=== PATIENT | male | born 1960 | race Caucasian/White ===

== ENCOUNTER 2018-04-23 21:46 | Emergency (ER) | payer OTHER ==
[~2018-04-23] VITALS: Ht 182.9 cm; Wt 122.9 kg
[2018-04-23 21:49] VITALS: Ht 182.9 cm; Wt 122.9 kg
[2018-04-23 22:48] LABS: BASOPHIL % 0.3 % (0-2); PLATELET COUNT 236 x10^3mcL (130-400); RED CELL DISTRIBUTION WIDTH 13.2 % (11.5-14.5)
[2018-04-23 23:06] LABS: ALBUMIN 3.5 g/dL (3.4-5.0); ALKALINE PHOSPHATASE 95 U/L (46-116); ALT/SGPT 50 U/L (16-63); AST/SGOT 30 U/L (15-37); BILIRUBIN TOTAL 0.2 mg/dL (0.20-1.00); CALCIUM 8.7 mg/dL (8.5-10.1); CARBON DIOXIDE 27.8 mmol/L (21-32); CHLORIDE SERUM 104 mmol/L (98-107); CHOLESTEROL 159 mg/dL (<200); CREATININE SERUM 1.3 mg/dL (0.7-1.3); GFR1 > 60 mL/min; GLUCOSE SERUM 121 mg/dL (74-106); HDL CHOLESTEROL 45 mg/dL (40-60); PHOSPHOROUS 2.3 mg/dL (2.5-4.9); POTASSIUM SERUM 4.2 mmol/L (3.5-5.1); SODIUM SERUM 140 mmol/L (136-145); TOTAL PROTEIN, SERUM 7.9 g/dL (6.4-8.2); URIC ACID 7.5 mg/dL (3.5-7.2)
[2018-04-23 23:58] VITALS: BP 112/83
== END 2018-04-23 23:58 | disposition home or self-care (01) ==
LOC: ED 21:46
PROVIDERS: Emergency Medicine
DX: R07.89 Other chest pain (principal); R42 Dizziness and giddiness; I10 Essential (primary) hypertension
CPT/HCPCS: J1885; Q0092

== ENCOUNTER 2020-04-14 20:37 | Inpatient (IN) | payer OTHER, SELFPAY ==
[~2020-04-14] VITALS: Ht 182.9 cm; Wt 109.8 kg
[2020-04-14 20:44] VITALS: Ht 182.9 cm; Wt 109.8 kg
[2020-04-14 21:22] LABS: BASOPHIL % 0.3 % (0.2-1.5); PLATELET COUNT 256 x10^3mcL (152-348); RED CELL DISTRIBUTION WIDTH 13.5 % (12.1-16.2)
[2020-04-14 21:24] LABS: CALCIUM 8.4 mg/dL (8.5-10.1); CARBON DIOXIDE 22.4 mmol/L (21-32); CREATININE SERUM 1.4 mg/dL (0.7-1.3); POTASSIUM SERUM 4.2 mmol/L (3.5-5.1)
[2020-04-14 21:42] LABS: ALBUMIN 2.7 g/dL (3.4-5.0); BILIRUBIN TOTAL 0.55 mg/dL (0.20-1.00); TOTAL PROTEIN, SERUM 7.6 g/dL (6.4-8.2)
[2020-04-14 21:50] LABS: C REACTIVE PROTEIN 25.2 mg/dL (<=0.9)
[2020-04-15 00:15] LABS: UA SPECIFIC GRAVITY >=1.030 (1.005-1.035); microscopic required? YES; urine erythrocyte 3+ (NEGATIVE)
[2020-04-15 00:22] VITALS: BP 136/81
[2020-04-15 00:27] LABS: AMPHETAMINE QUAL UR NONE DETECTED (See below)
[2020-04-15 08:16] VITALS: BP 122/79
[2020-04-15 09:50] LABS: T3 TOTAL 0.95 ng/mL
[2020-04-15 10:19] LABS: MAGNESIUM 2.4 mg/dL (1.8-2.4); PHOSPHOROUS 2.7 mg/dL (2.5-4.9)
[2020-04-15 10:21] LABS: CHOLESTEROL/HDL RATIO 2.9
[2020-04-15 10:31] LABS: FREE T4 1.4 ng/dL (0.76-1.46); FREE THYROXINE INDEX 3.3 ug/dL (1.4-4.5); T4(THYROXINE) 9.8 ug/dL (4.7-13.3)
[2020-04-15] MEDS ORDERED: ZESTRIL40 MG PO (11:44)
[2020-04-15] MEDS ORDERED: FERROUS GLUCON324 MG (11:45)
[2020-04-15] MEDS ORDERED: NASAL MIST126 ML (11:46)
[2020-04-15 11:55] VITALS: BP 128/77
[2020-04-15 12:33] LABS: ALKALINE PHOSPHATASE 100 U/L (46-116); ALT/SGPT 134 U/L (16-63); AST/SGOT 176 U/L (15-37); BILIRUBIN TOTAL 0.54 mg/dL (0.20-1.00); CALCIUM 8.7 mg/dL (8.5-10.1); CARBON DIOXIDE 24.3 mmol/L (21-32); CHLORIDE SERUM 97 mmol/L (98-107); CREATININE SERUM 1.2 mg/dL (0.7-1.3); GFR1 > 60 mL/min; GLUCOSE SERUM 87 mg/dL (74-106); POTASSIUM SERUM 4.2 mmol/L (3.5-5.1); SODIUM SERUM 135 mmol/L (136-145); TOTAL PROTEIN, SERUM 7.7 g/dL (6.4-8.2)
[2020-04-15 12:40] LABS: BILIRUBIN DIRECT 0.26 mg/dL (0.0-0.2); BILIRUBIN TOTAL 0.51 mg/dL (0.20-1.00); TOTAL PROTEIN, SERUM 7.6 g/dL (6.4-8.2)
[2020-04-15 12:41] LABS: ALBUMIN 2.7 g/dL (3.4-5.0)
[2020-04-15 12:42] LABS: ALBUMIN 2.7 g/dL (3.4-5.0)
[2020-04-15 15:43] VITALS: BP 111/70
[2020-04-15 19:08] LABS: BASOPHIL % 0.3 % (0.2-1.5); PLATELET COUNT 299 x10^3mcL (152-348); RED CELL DISTRIBUTION WIDTH 13.5 % (12.1-16.2)
[2020-04-15 20:39] VITALS: BP 118/81
[2020-04-16] VITALS (8 sets, daily range): BP systolic 113–134; BP diastolic 72–97
[2020-04-16 08:06] LABS: PLATELET COUNT 336 x10^3mcL (152-348); RED CELL DISTRIBUTION WIDTH 13.4 % (12.1-16.2)
[2020-04-16 08:17] LABS: CALCIUM 8.4 mg/dL (8.5-10.1); CARBON DIOXIDE 26.5 mmol/L (21-32); CHLORIDE SERUM 98 mmol/L (98-107); CREATININE SERUM 1.1 mg/dL (0.7-1.3); GFR1 > 60 mL/min; GLUCOSE SERUM 101 mg/dL (74-106); MAGNESIUM 2.7 mg/dL (1.8-2.4); PHOSPHOROUS 4.4 mg/dL (2.5-4.9); POTASSIUM SERUM 4.4 mmol/L (3.5-5.1); SODIUM SERUM 135 mmol/L (136-145)
[2020-04-16 08:19] LABS: BILIRUBIN DIRECT 0.27 mg/dL (0.0-0.2); BILIRUBIN TOTAL 0.51 mg/dL (0.20-1.00)
[2020-04-16 08:20] LABS: ALBUMIN 2.6 g/dL (3.4-5.0)
[2020-04-16 11:24] LABS: MONOCYTE 18 % (0-7); SEGMENTED NEUTROPHILS 65 % (37-75); rbc morphology (normal/abnorm) NORMAL (NORMAL)
[2020-04-17 06:00] VITALS: BP 122/72
[2020-04-17 08:51] VITALS: BP 124/73
[2020-04-17 09:29] LABS: BASOPHIL % 0.3 % (0.2-1.5); RED CELL DISTRIBUTION WIDTH 13.7 % (12.1-16.2)
[2020-04-17 10:07] LABS: PLATELET COUNT 423 x10^3mcL (152-348)
[2020-04-17 12:09] VITALS: BP 138/78
[2020-04-17 13:56] LABS: BILIRUBIN DIRECT 0.21 mg/dL (0.0-0.2); BILIRUBIN TOTAL 0.4 mg/dL (0.20-1.00); TOTAL PROTEIN, SERUM 7.8 g/dL (6.4-8.2)
[2020-04-17 14:00] LABS: ALBUMIN 2.9 g/dL (3.4-5.0)
[2020-04-17 15:52] LABS: ALKALINE PHOSPHATASE 118 U/L (46-116); ALT/SGPT 142 U/L (16-63); AST/SGOT 136 U/L (15-37); BILIRUBIN TOTAL 0.4 mg/dL (0.20-1.00); CALCIUM 9.3 mg/dL (8.5-10.1); CHLORIDE SERUM 105 mmol/L (98-107); CREATININE SERUM 1.2 mg/dL (0.7-1.3); GFR1 > 60 mL/min; GLUCOSE SERUM 83 mg/dL (74-106); POTASSIUM SERUM 4.6 mmol/L (3.5-5.1); SODIUM SERUM 142 mmol/L (136-145); TOTAL PROTEIN, SERUM 7.8 g/dL (6.4-8.2)
[2020-04-17 16:05] LABS: ALBUMIN 2.9 g/dL (3.4-5.0)
[2020-04-17 16:51] VITALS: BP 100/69
[2020-04-17 20:38] VITALS: BP 126/80
[2020-04-18 05:00] VITALS: BP 130/85
[2020-04-18 07:40] LABS: BILIRUBIN DIRECT 0.27 mg/dL (0.0-0.2); BILIRUBIN TOTAL 0.64 mg/dL (0.20-1.00); TOTAL PROTEIN, SERUM 7.8 g/dL (6.4-8.2)
[2020-04-18 07:43] LABS: ALBUMIN 2.7 g/dL (3.4-5.0)
[2020-04-18 10:15] VITALS: BP 135/79
[2020-04-18 11:59] VITALS: BP 115/63
[2020-04-18 16:52] VITALS: BP 128/72
[2020-04-18 20:55] VITALS: BP 128/82
[2020-04-19 05:31] VITALS: BP 117/80
[2020-04-19 07:42] LABS: BASOPHIL % 0.1 % (0.2-1.5); RED CELL DISTRIBUTION WIDTH 13.4 % (12.1-16.2)
[2020-04-19 08:31] LABS: PLATELET COUNT 497 x10^3mcL (152-348)
[2020-04-19 08:48] LABS: CALCIUM 8.4 mg/dL (8.5-10.1); CHLORIDE SERUM 102 mmol/L (98-107); CREATININE SERUM 1.2 mg/dL (0.7-1.3); GFR1 > 60 mL/min; GLUCOSE SERUM 87 mg/dL (74-106); POTASSIUM SERUM 4.2 mmol/L (3.5-5.1); SODIUM SERUM 140 mmol/L (136-145)
[2020-04-19 08:49] LABS: C REACTIVE PROTEIN 16.1 mg/dL (<=0.9)
[2020-04-19 08:54] VITALS: BP 107/77
[2020-04-19 08:58] LABS: BILIRUBIN DIRECT 0.3 mg/dL (0.0-0.2); BILIRUBIN TOTAL 0.66 mg/dL (0.20-1.00); TOTAL PROTEIN, SERUM 7.8 g/dL (6.4-8.2)
[2020-04-19 09:08] LABS: ALBUMIN 2.6 g/dL (3.4-5.0)
[2020-04-19 12:20] VITALS: BP 107/76
[2020-04-19 16:50] VITALS: BP 103/68
[2020-04-19 22:03] VITALS: BP 113/74
[2020-04-20 06:08] VITALS: BP 138/80
[2020-04-20 07:15] LABS: RED CELL DISTRIBUTION WIDTH 13.6 % (12.1-16.2)
[2020-04-20 07:51] LABS: CALCIUM 9.1 mg/dL (8.5-10.1); CARBON DIOXIDE 25.6 mmol/L (21-32); CHLORIDE SERUM 103 mmol/L (98-107); CREATININE SERUM 1.1 mg/dL (0.7-1.3); GFR1 > 60 mL/min; GLUCOSE SERUM 90 mg/dL (74-106); POTASSIUM SERUM 4.2 mmol/L (3.5-5.1); SODIUM SERUM 139 mmol/L (136-145)
[2020-04-20 08:56] LABS: C REACTIVE PROTEIN 18.1 mg/dL (<=0.9)
[2020-04-20 09:44] VITALS: BP 121/74
[2020-04-20 12:10] VITALS: BP 117/80
[2020-04-20 13:10] LABS: MONOCYTE 5 % (0-7); SEGMENTED NEUTROPHILS 87 % (37-75)
[2020-04-20 13:11] LABS: rbc morphology (normal/abnorm) NORMAL (NORMAL)
[2020-04-20 13:12] LABS: PLATELET COUNT 571 x10^3mcL (152-348)
[2020-04-20 16:18] VITALS: BP 118/76
[2020-04-20 21:13] VITALS: BP 116/82
[2020-04-21 05:29] VITALS: BP 113/77
[2020-04-21 08:41] VITALS: BP 127/80
[2020-04-21 11:57] VITALS: BP 109/70
[2020-04-21 17:21] VITALS: BP 110/77
[2020-04-21 21:01] VITALS: BP 110/82
[2020-04-22 05:32] VITALS: BP 122/84
[2020-04-22 08:40] VITALS: BP 130/79
[2020-04-22 12:56] VITALS: BP 122/80
[2020-04-22 17:08] VITALS: BP 117/80
[2020-04-22 20:53] VITALS: BP 119/77
[2020-04-23] VITALS: BP 137/74
[2020-04-23 05:22] VITALS: BP 109/72
[2020-04-23 09:03] VITALS: BP 115/79
[2020-04-23 12:30] VITALS: BP 107/73
[2020-04-23 16:21] VITALS: BP 106/70
[2020-04-23 19:20] VITALS: BP 117/66
[2020-04-24] VITALS (7 sets, daily range): BP systolic 97–126; BP diastolic 56–82
[2020-04-24 07:33] LABS: BASOPHIL % 0.2 % (0.2-1.5); RED CELL DISTRIBUTION WIDTH 13.3 % (12.1-16.2)
[2020-04-24 07:46] LABS: CARBON DIOXIDE 28.8 mmol/L (21-32); CHLORIDE SERUM 99 mmol/L (98-107); CREATININE SERUM 1.1 mg/dL (0.7-1.3); GFR1 > 60 mL/min; GLUCOSE SERUM 85 mg/dL (74-106); POTASSIUM SERUM 4.2 mmol/L (3.5-5.1); SODIUM SERUM 136 mmol/L (136-145)
[2020-04-24 09:06] LABS: PLATELET COUNT 517 x10^3mcL (152-348)
[2020-04-25 06:00] VITALS: BP 110/74
[2020-04-25 07:45] VITALS: BP 99/63
[2020-04-25 09:21] LABS: BASOPHIL % 0.2 % (0.2-1.5); RED CELL DISTRIBUTION WIDTH 13.2 % (12.1-16.2)
[2020-04-25 09:37] LABS: CALCIUM 8.8 mg/dL (8.5-10.1); CARBON DIOXIDE 27.7 mmol/L (21-32); CHLORIDE SERUM 101 mmol/L (98-107); CREATININE SERUM 0.9 mg/dL (0.7-1.3); GFR1 > 60 mL/min; GLUCOSE SERUM 114 mg/dL (74-106); MAGNESIUM 2.1 mg/dL (1.8-2.4); POTASSIUM SERUM 3.9 mmol/L (3.5-5.1); SODIUM SERUM 137 mmol/L (136-145)
[2020-04-25 11:19] LABS: PLATELET COUNT 437 x10^3mcL (152-348)
[2020-04-25 13:19] VITALS: BP 107/69
[2020-04-25 17:11] VITALS: BP 102/78
[2020-04-25 20:15] VITALS: BP 104/63
[2020-04-26 04:51] VITALS: BP 95/58
[2020-04-26 07:29] LABS: BASOPHIL % 0.2 % (0.2-1.5); PLATELET COUNT 367 x10^3mcL (152-348); RED CELL DISTRIBUTION WIDTH 13.2 % (12.1-16.2)
[2020-04-26 08:08] LABS: CALCIUM 8.8 mg/dL (8.5-10.1); CARBON DIOXIDE 29.8 mmol/L (21-32); CHLORIDE SERUM 101 mmol/L (98-107); CREATININE SERUM 1.2 mg/dL (0.7-1.3); GFR1 > 60 mL/min; GLUCOSE SERUM 89 mg/dL (74-106); MAGNESIUM 2.1 mg/dL (1.8-2.4); SODIUM SERUM 137 mmol/L (136-145)
[2020-04-26 09:01] VITALS: BP 104/59
[2020-04-26 16:22] VITALS: BP 100/67
[2020-04-26 23:02] VITALS: BP 103/69
[2020-04-27 06:51] VITALS: BP 106/74
[2020-04-27 08:39] VITALS: BP 103/73
[2020-04-27 11:56] VITALS: BP 116/68
[2020-04-27 12:00] VITALS: BP 123/71
[2020-04-27 16:33] VITALS: BP 107/71
[2020-04-27 20:08] LABS: BASOPHIL % 0.1 % (0.2-1.5); PLATELET COUNT 319 x10^3mcL (152-348); RED CELL DISTRIBUTION WIDTH 12.9 % (12.1-16.2)
[2020-04-27 22:20] VITALS: BP 109/69
[2020-04-27 23:05] LABS: CALCIUM 9.2 mg/dL (8.5-10.1); CARBON DIOXIDE 28.5 mmol/L (21-32); CHLORIDE SERUM 98 mmol/L (98-107); CREATININE SERUM 0.9 mg/dL (0.7-1.3); GFR1 > 60 mL/min; GLUCOSE SERUM 105 mg/dL (74-106); POTASSIUM SERUM 4.6 mmol/L (3.5-5.1); SODIUM SERUM 135 mmol/L (136-145)
[2020-04-28 06:45] VITALS: BP 106/70
[2020-04-28 07:56] LABS: CALCIUM 9.5 mg/dL (8.5-10.1); CARBON DIOXIDE 31.3 mmol/L (21-32); CHLORIDE SERUM 98 mmol/L (98-107); CREATININE SERUM 1.1 mg/dL (0.7-1.3); GFR1 > 60 mL/min; GLUCOSE SERUM 81 mg/dL (74-106); POTASSIUM SERUM 4.2 mmol/L (3.5-5.1); SODIUM SERUM 137 mmol/L (136-145)
[2020-04-28 08:18] VITALS: BP 120/69
[2020-04-28 11:09] VITALS: BP 100/68
[2020-04-28 16:34] LABS: BASOPHIL % 0.6 % (0.2-1.5); PLATELET COUNT 287 x10^3mcL (152-348); RED CELL DISTRIBUTION WIDTH 13.3 % (12.1-16.2)
[2020-04-28 16:47] VITALS: BP 96/70
[2020-04-28 21:19] VITALS: BP 109/70
[2020-04-29 05:18] VITALS: BP 110/74
[2020-04-29 08:25] LABS: BASOPHIL % 0.8 % (0.2-1.5); PLATELET COUNT 247 x10^3mcL (152-348); RED CELL DISTRIBUTION WIDTH 13.1 % (12.1-16.2)
[2020-04-29 08:40] VITALS: BP 108/72
[2020-04-29 09:08] LABS: CALCIUM 9.5 mg/dL (8.5-10.1); CARBON DIOXIDE 27.5 mmol/L (21-32); CHLORIDE SERUM 100 mmol/L (98-107); CREATININE SERUM 0.9 mg/dL (0.7-1.3); GFR1 > 60 mL/min; GLUCOSE SERUM 76 mg/dL (74-106); POTASSIUM SERUM 3.7 mmol/L (3.5-5.1); SODIUM SERUM 138 mmol/L (136-145)
[2020-04-29 12:01] VITALS: BP 99/63
[2020-04-29 17:35] VITALS: BP 114/73
[2020-04-29 22:53] VITALS: BP 104/63
[2020-04-30 06:13] VITALS: BP 104/68
[2020-04-30 07:21] LABS: BASOPHIL % 0.2 % (0.2-1.5); PLATELET COUNT 278 x10^3mcL (152-348)
[2020-04-30 07:45] LABS: CALCIUM 9.5 mg/dL (8.5-10.1); CARBON DIOXIDE 30.6 mmol/L (21-32); CHLORIDE SERUM 100 mmol/L (98-107); GFR1 > 60 mL/min; GLUCOSE SERUM 78 mg/dL (74-106); POTASSIUM SERUM 4.2 mmol/L (3.5-5.1); SODIUM SERUM 138 mmol/L (136-145)
[2020-04-30 08:44] VITALS: BP 111/77; BP 70/41
[2020-04-30 12:05] VITALS: BP 107/69
[2020-04-30 16:48] VITALS: BP 109/76
[2020-04-30 22:06] VITALS: BP 19/82
[2020-05-01 06:05] VITALS: BP 99/63
[2020-05-01 07:36] LABS: CALCIUM 9.2 mg/dL (8.5-10.1); CARBON DIOXIDE 28.9 mmol/L (21-32); CHLORIDE SERUM 100 mmol/L (98-107); CREATININE SERUM 0.9 mg/dL (0.7-1.3); GFR1 > 60 mL/min; GLUCOSE SERUM 82 mg/dL (74-106); POTASSIUM SERUM 3.5 mmol/L (3.5-5.1); SODIUM SERUM 137 mmol/L (136-145)
[2020-05-01 07:40] LABS: BASOPHIL % 0.3 % (0.2-1.5); PLATELET COUNT 222 x10^3mcL (152-348); RED CELL DISTRIBUTION WIDTH 13.4 % (12.1-16.2)
[2020-05-01 08:36] VITALS: BP 99/65
[2020-05-01 10:55] VITALS: BP 97/64
[2020-05-01 16:59] VITALS: BP 107/76
[2020-05-01 21:03] VITALS: BP 103/67
[2020-05-02 05:25] VITALS: BP 95/70
[2020-05-02 06:59] LABS: BASOPHIL % 0.9 % (0.2-1.5); PLATELET COUNT 239 x10^3mcL (152-348); RED CELL DISTRIBUTION WIDTH 12.9 % (12.1-16.2)
[2020-05-02 07:42] LABS: CALCIUM 8.9 mg/dL (8.5-10.1); CARBON DIOXIDE 30.4 mmol/L (21-32); CHLORIDE SERUM 99 mmol/L (98-107); CREATININE SERUM 0.9 mg/dL (0.7-1.3); GFR1 > 60 mL/min; GLUCOSE SERUM 86 mg/dL (74-106); POTASSIUM SERUM 3.7 mmol/L (3.5-5.1); SODIUM SERUM 136 mmol/L (136-145)
[2020-05-02 09:29] VITALS: BP 112/74
[2020-05-02 13:50] VITALS: BP 95/66
[2020-05-02 17:06] VITALS: BP 110/64
[2020-05-02 20:40] VITALS: BP 91/69
[2020-05-03 05:50] VITALS: BP 94/62
[2020-05-03 08:56] VITALS: BP 100/61
[2020-05-03 11:26] VITALS: BP 108/74
[2020-05-03 17:57] VITALS: BP 100/65
[2020-05-03 21:19] VITALS: BP 104/67
[2020-05-04 05:03] VITALS: BP 90/65
[2020-05-04 08:21] LABS: BASOPHIL % 1.2 % (0.2-1.5); PLATELET COUNT 236 x10^3mcL (152-348); RED CELL DISTRIBUTION WIDTH 13.5 % (12.1-16.2)
[2020-05-04 08:44] LABS: CALCIUM 8.7 mg/dL (8.5-10.1); CARBON DIOXIDE 29.6 mmol/L (21-32); CHLORIDE SERUM 101 mmol/L (98-107); CREATININE SERUM 0.9 mg/dL (0.7-1.3); GFR1 > 60 mL/min; GLUCOSE SERUM 90 mg/dL (74-106); POTASSIUM SERUM 3.6 mmol/L (3.5-5.1); SODIUM SERUM 138 mmol/L (136-145)
[2020-05-04 08:47] VITALS: BP 96/70
[2020-05-04] MEDS ORDERED: ZINC SULFATE220 MG PO (09:20)
[2020-05-04] MEDS ORDERED: MUCINEX600 MG PO (09:20)
[2020-05-04] MEDS ORDERED: VITC PO (09:20)
[2020-05-04] MEDS ORDERED: L20 PO (09:20)
[2020-05-04] MEDS ORDERED: VENTOLIN H0.09 MG/A1 INH (09:20)
[2020-05-04] MEDS ORDERED: D-10001 TAB PO (09:21)
[2020-05-04] MEDS ORDERED: LEADER MELATONIN5 MG PO (09:21)
[2020-05-04] MEDS ORDERED: ELIQUIS2.5 MG PO (09:22)
[2020-05-04 09:51] VITALS: BP 96/70
[2020-05-04 09:52] VITALS: BP 96/70
[2020-05-04] MEDS ORDERED: ZITHROMAX250 MG (10:25)
[2020-05-04 16:07] VITALS: BP 93/65
[2020-05-04 20:05] VITALS: BP 96/59
[2020-05-05 05:34] VITALS: BP 103/71
[2020-05-05 09:16] VITALS: BP 104/73
[2020-05-05 13:09] VITALS: BP 94/56
[2020-05-05 13:26] VITALS: BP 94/56
[2020-05-05 16:06] VITALS: BP 101/66
[2020-05-05 23:17] VITALS: BP 104/61
[2020-05-06 05:45] VITALS: BP 104/69
[2020-05-06 09:32] VITALS: BP 108/65
[2020-05-06 12:17] VITALS: BP 104/62
[2020-05-06 14:08] VITALS: BP 104/62
[2020-05-06 18:38] VITALS: BP 112/71
[2020-05-06 20:10] VITALS: BP 76/44
[2020-05-07 06:19] VITALS: BP 93/58
[2020-05-07 10:14] VITALS: BP 100/67
[2020-05-07 14:17] VITALS: BP 98/62
[2020-05-07 14:54] VITALS: BP 100/60
== END 2020-05-07 17:00 | disposition home health service (06) | DRG 871 ==
LOC: ED 20:37 → DU 23:22
PROVIDERS: Emergency Medicine; Internal Medicine; ADMIT Family Medicine; ATTEND Family Medicine
PROC: XW033E5 Introduction of Remdesivir Anti-infective into Peripheral Vein, Percutaneous Approach, New Technology Group 5 (ICD-10-PCS; 2020-04-15)
PROC: XW13325 Transfusion of Convalescent Plasma (Nonautologous) into Peripheral Vein, Percutaneous Approach, New Technology Group 5 (ICD-10-PCS; principal; 2020-04-16)
DX: A41.9 Sepsis, unspecified organism (principal); U07.1 COVID-19; J96.01 Acute respiratory failure with hypoxia; E43 Unspecified severe protein-calorie malnutrition; J12.82 Pneumonia due to coronavirus disease 2019; N17.9 Acute kidney failure, unspecified; E87.1 Hypo-osmolality and hyponatremia; I10 Essential (primary) hypertension; Z96.652 Presence of left artificial knee joint; Z79.899 Other long term (current) drug therapy; E83.51 Hypocalcemia; E66.9 Obesity, unspecified; Z71.3 Dietary counseling and surveillance; Z68.32 Body mass index [BMI] 32.0-32.9, adult
CPT/HCPCS: 36600; 82962; 83880; 84439; 85378; 87804; 97110-GP; 97112-GP; 97116-GP; 97164; 97530-GP; C9113; G0378; J0696; J1100; J1644; J1650; J3535; J7040; J7050; U0003